=== PATIENT | female | born 1990 | race Caucasian/White ===

== ENCOUNTER 2017-02-02 09:58 | Emergency (ER) | payer MEDICAID ==
[~2017-02-02] VITALS: Ht 160 cm; Wt 80.7 kg
[~2017-02-02 09:58] MED LIST: AMOXIL500 MG PO; BACTRIM DS 8001 TAB PO; CIPRO 500MG TA500 MG PO; CLINDAMYCIN150 MG PO; CORTISPORIN (GE10 M2 OT; LORTAB 5/500 501 TAB PO; NOMEDS *; PERCOCET 5/3251 EACH PO; ZOFRAN ODT8 MG PO
[2017-02-02] MEDS ORDERED: FLONASE 50 MCG16 GM (10:26)
[2017-02-02] MEDS ORDERED: CLARITIN 10MG T10 MG PO (10:26)
--- NOTE | 2017-02-02 10:27 | Urgent Treatment Center Report ---
History of Present Issue Date/Time Seen by Provider 02/02/17 1015 Visit Reason Pt arrived:Walked Presenting Problem:PT STATES CHEST CONGESTION, SINUS PRESSURE AND THROAT IRRITATION THAT BEGAN LAST NIGHT Location if Accident: Onset of symptoms date/time:02/01/17/ or onset unknown for:MEDICAL HX UNKNOWN Have you (or family members/close friends) recently traveled outside the [place]? N If Yes, where/when: Have you had exposure to infectious disease within the past month? TB? Other? Specify: c/o nasal congestion, rhinorrhea, head congestion. Started w/ rhinorrhea yesterday evening. Woke up in the middle of the night unable to breath due to nasal congestion. Head feels "like a balloon" this morning. Benadryl once last night helped w/ rhinorrhea. Hasn't taken or tried anything else. No known sick contacts. Source patient Exam Limitations no limitations ALLERGIES Coded Allergies: codeine (02/02/17) Home Medications Reported Medications No Home Medications (NO HOME MEDICATIONS) 1 X * ONCE History Medical History General CAD? No Angina: No OR: No Hypertension? No Hyperlipidemia? No CHF? No DVT? No PE? No COPD? No Asthma? No Anemia? No GERD? No Gastric ulcers? No GI Bleed? No Hernia? No Thyroid Problems? No Hypothyroidism? No CVA? No Seizures? No Diabetes? No Renal Insuffiency? No UTI? No Stones? No BPH? No GB Disease: No Nephritic Syndrome? No Asplenia? No Hepatitis? No Sickle Cell Disease? No Arthritis? No Migraines? No Cataracts? No Glaucoma? No MRSA? No HIV? No TB? No Anxiety? No Depression? No Cancer? 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 denies: ear pain, throat pain, throat swelling. Respiratory denies cough, denies shortness of breath Gastrointestinal denies no symptoms reported Musculoskeletal denies other (aches) Skin denies rash Psychiatric/Neurological denies headache Physical Exam Vital Signs Vital Signs Date Time Temp Pulse Resp B/P Pulse O2 O2 Flow FiO2 Ox Delivery Rate 02/02 1008 98.9 101 20 142/78 98 General Appearance normal appearance, no apparent distress Eye Exam - bilateral eye normal exam Ear, Nose, Throat normal ENT inspection (x/ moderate nasal obi) Neck non-tender, supple Respiratory Status No: respiratory distress, productive cough, non productive cough. Lung Sounds anterior: lungs clear. posterior: lungs clear. bilateral: lungs clear. Cardiovascular regular rate/rhythm, no peripheral edema, no murmur Neurologic alert, oriented x 3 Mental status normal mood/affect Skin normal color, warm/dry Lymphatic no adenopathy Medical Decision Making LABS/Meds/Orders Pt receiving controlled substance in ED? No Departure Departure Time of Disposition 1023 Disposition DC Home or Self Care(routine) Clinical Impression Primary Impression: Upper respiratory virus Condition STABLE Referrals NO REFERRAL Follow up with primary care IMMEDIATELY for new or worsening symptoms OR no noticeable improvement over the next 3 days. 911 for difficulty breathing or swallowing. Patient Instructions DI for Viral Upper Respiratory Infection -- Adult Additional Instructions * No sign of bacterial infection. Likely viral. Virus can take 7-14 days to run their course * Monitor Temp. Follow up if any fever begins. * Encourage fluids, water, gatorade, powerade, pedialyte if infant/toddler/child * warm salt water gargles * warm fluids * sore throat lozenges * sleep elevated * humidifier/vaporizer * flonase 2 sprays each nostril daily but may take 2-3 days to notice improvement with it. * Claritin daily. * Sudafed as needed. Follow up IMMEDIATELY for new or worsening symptoms OR no noticeable improvement over the next 48-72 hours. 911 for difficulty breathing or swallowing. Discharge Counseling Counseled pt/family regarding diagnosis, medications/RX, home care, follow up needs Prescriptions Current Visit Scripts Fluticasone Propionate (Flonase 50 Mcg Nasal [place]) 2 SPRAY NA DAILY #1 BOT Loratadine (Claritin 10MG) 10 MG PO DAILY #30 TAB at 1030
[2017-02-02 10:28] VITALS: BP 142/78
== END 2017-02-02 10:29 | disposition home or self-care (01) ==
LOC: UTC 09:58
DX: H60.91 Unspecified otitis externa, right ear (principal)

== ENCOUNTER 2017-02-19 10:25 | Emergency (ER) | payer MEDICAID ==
[~2017-02-19] VITALS: Ht 160 cm; Wt 77.1 kg
[~2017-02-19 10:25] MED LIST changes: +CLARITIN 10MG T10 MG PO; +FLONASE 50 MCG16 GM
[2017-02-19] MEDS ORDERED: FLOXIN 0.3%5 ML/BOT OT (10:53)
--- NOTE | 2017-02-19 10:54 | Urgent Treatment Center Report ---
History of Present Issue Date/Time Seen by Provider 02/19/17 1044 Visit Reason Pt arrived:Walked Presenting Problem:PT STATES R EAR ACHE THAT BEGAN LAST NIGHT. STATES NOW SHE HAS SWELLING BEHIND EAR AND PAIN RADIATES INTO NECK AND JAW. DENIES INJURY Location if Accident: Onset of symptoms date/time:02/18/17/ or onset unknown for:MEDICAL HX UNKNOWN Have you (or family members/close friends) recently traveled outside the [place]? N If Yes, where/when: Have you had exposure to infectious disease within the past month? TB? Other? Specify: Patient state that she has been having pain in her right ear on and off for several days. States that last night she began having severe earache in right ear and feels like the outside of the ear is swelling and she is having pain in the ear when she opens her mouth or chews states that she has had some light drainage from the ear but it is very tender to touch ALLERGIES Coded Allergies: codeine (02/02/17) Home Medications Reported Medications No Home Medications (NO HOME MEDICATIONS) 1 X * ONCE History Medical History General CAD? No Angina: No NH: No Hypertension? No Hyperlipidemia? No CHF? No DVT? No PE? No COPD? No Asthma? No Anemia? No GERD? No Gastric ulcers? No GI Bleed? No Hernia? No Thyroid Problems? No Hypothyroidism? No CVA? No Seizures? No Diabetes? No Renal Insuffiency? No UTI? No Stones? No BPH? No GB Disease: No Nephritic Syndrome? No Asplenia? No Hepatitis? No Sickle Cell Disease? No Arthritis? No Migraines? No Cataracts? No Glaucoma? No MRSA? No HIV? No TB? No Anxiety? No Depression? No Cancer? 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 Physical Exam Vital Signs Vital Signs Date Time Temp Pulse Resp B/P Pulse O2 O2 Flow FiO2 Ox Delivery Rate 02/19 1033 97.9 106 20 156/101 98 General Appearance normal appearance, WD/WN, no apparent distress Ear, Nose, Throat right ear external cannal swollen puss noted Tm not visable Respiratory Status Yes: trachea midline, chest symmetrical, non tender chest. No: respiratory distress. Cardiovascular normal exam, regular rate/rhythm, no peripheral edema, no gallop Neurologic alert, crimp setter II-XII nml as tested, normal exam, no motor/sensory deficits, oriented x 3 Medical Decision Making LABS/Meds/Orders Pt receiving controlled substance in ED? No Results/Orders Current Medication Orders Sig/Mary Start time Last Medication Dose Route Stop Time Status Admin Ceftriaxone Sodium 1 GM ONCE ONE 02/19 1100 DC 02/19 IM 02/19 1101 1055 Lidocaine HCl 0 ONCE ONE 02/19 1100 DC 02/19 IM 02/19 1101 1056 Ceftriaxone Sodium 0 .STK-MED ONE 02/19 1051 DC .ROUTE Lidocaine HCl 0 .STK-MED ONE 02/19 1051 DC .ROUTE Departure Departure Time of Disposition 1052 Disposition DC Home or Self Care(routine) Clinical Impression Primary Impression: Otitis externa Qualifiers: Otitis externa type: unspecified type Chronicity: unspecified Laterality: right Qualified Code: H60.91 - Unspecified otitis externa, right ear Condition STABLE Referrals Nedra Rodriguez MD (Family) Patient Instructions DI for Otitis Externa, Otitis Externa Additional Instructions Use drops as directed OVer the coutner Motrin or Tylenol as needed for pain or fever Follow up with family doctor Return if needed Discharge Counseling Counseled pt/family regarding diagnosis, medications/RX, home care Prescriptions Current Visit Scripts OFLOXACIN (Floxin 0.3% Otic Solution 5ML) 10 DROP OT BID #1 BOT at 1113
[2017-02-19 11:18] VITALS: BP 156/101
[2017-03-08] MEDS ORDERED: NIX CREAM R60 ML/BOT EX (11:34)
[2017-03-08] MEDS ORDERED: CLARITIN 10MG T10 MG PO (11:34)
== END 2017-02-19 11:21 | disposition home or self-care (01) ==
LOC: UTC 10:25
DX: H60.91 Unspecified otitis externa, right ear (principal)

== ENCOUNTER 2017-03-08 10:50 | Emergency (ER) | payer MEDICAID ==
[~2017-03-08] VITALS: Ht 160 cm; Wt 81.6 kg
--- NOTE | 2017-03-08 11:35 | Urgent Treatment Center Report ---
History of Present Issue Date/Time Seen by Provider 03/08/17 1116 Visit Reason Pt arrived:Walked Presenting Problem:PT C/O RIGHT EAR PAIN. Location if Accident: Onset of symptoms date/time:/ or onset unknown for:MEDICAL HX UNKNOWN Have you (or family members/close friends) recently traveled outside the [place]? N If Yes, where/when: Have you had exposure to infectious disease within the past month? TB? Other? Specify: Patient states that she was recently seen and treated for inflammed lymph nodes behind her right ear. States that now she is having pressure like feeling behind her ears and wanted to have it checked out. 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 No Angina: No OR: No Hypertension? No Hyperlipidemia? No CHF? No DVT? No PE? No COPD? No Asthma? No Anemia? No GERD? No Gastric ulcers? No GI Bleed? No Hernia? No Thyroid Problems? No Hypothyroidism? No CVA? No Seizures? No Diabetes? No Renal Insuffiency? No UTI? No Stones? No BPH? No GB Disease: No Nephritic Syndrome? No Asplenia? No Hepatitis? No Sickle Cell Disease? No Arthritis? No Migraines? No Cataracts? No Glaucoma? No MRSA? No HIV? No TB? No Anxiety? No Depression? No Cancer? No Immunization HX DT/Tetanus 5-10 YRS Surgical Hx Previous Surgery?Y EAR TUBES TONSILS AND ADENOIDS Social History Smoking Hx Smoker: Current Every Day Smoker Tobacco: Yes Type Cigarettes Alcohol Alcohol: No Review of Systems All Other Systems Reviewed and Negative ENT ear pain, nose congestion. Comment State has seasonal allergies not sure if ear pain is from infection or where her sinuses are stopped up Physical Exam Vital Signs Vital Signs Date Time Temp Pulse Resp B/P Pulse O2 O2 Flow FiO2 Ox Delivery Rate 03/08 1054 98.5 87 16 155/60 98 General Appearance normal appearance, WD/WN, no apparent distress Ear, Nose, Throat Bilateral ears no redness, mild fluid noted scaring noted from old ear tubes Respiratory Status Yes: trachea midline, chest symmetrical, non tender chest. No: respiratory distress. Cardiovascular normal exam, regular rate/rhythm Neurologic alert, normal exam, oriented x 3 Comments Hair checked observed what appeared to be nits on hair shaft, no adult lice seen Medical Decision Making LABS/Meds/Orders Pt receiving controlled substance in ED? No Departure Departure Time of Disposition 1130 Disposition DC Home or Self Care(routine) Clinical Impression Primary Impression: Allergic rhinitis Qualifiers: Chronicity: unspecified Allergic rhinitis trigger: unspecified Allergic rhinitis seasonality: unspecified seasonality Qualified Code: J30.9 - Allergic rhinitis, unspecified Condition STABLE Referrals Av BOYD,TERRA Quintanilla Patient Instructions DI for Allergic Rhinitis, DI for Head Lice, Head Lice Additional Instructions Use lice shampoo as directed and clean all bed linens with hot water. replace brushes and clean all clothing bed linens etc Follow up with family doctor REturn if needed Discharge Counseling Counseled pt/family regarding diagnosis, medications/RX, home care, follow up needs Prescriptions Current Visit Scripts Permethrin (NIX) 60 ML EX ONCE #1 LIQ Loratadine (Claritin 10MG) 10 MG PO DAILY #30 TAB at 1137
[2017-03-08 11:42] VITALS: BP 155/60
--- OUTSIDE RECORDS SUMMARY | 2017-03-18 02:59 | External Medical Summary Rpt | CCD ---
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 Name Role Phone LETI ENGLISHRIMARICKY Unavailable Unavailable [facility] Unavailable Unavailable HOSP[facility], [facility] PH[facility] Unavailable Unavailable PRACTICE L, [facility], Unavailable Unavailable [facility] MARY HECTOR, MARY Unavailable Unavailable [facility] Unavailable [facility]available [facility], [facility] Unavailable Unavailable [facility], [facility] Unavailable Unavailable [facility], [facility] NATHANEIL BREANA, NATHANIEL Unavailable Unavailable BREANA TORI CARRASCO, Unavailable Unavailable TORI CARRASCO R HENRY, Unavailable Unavailable Harjit [facility], Unavailable Unavailable [facility], [facility], [facility] Unavailable Unavailable EMER[facility]Y [facility], [facility] Unavailable Unavailable DEPT [facility], [facility] DE[facility] Unavailable Unavailable [facility] Purpose Continuity of Care Document - 07-02-2007 through 2016 Problems Code Diagnosis DOS Provider Status H6501 ACUTE 02-03-2016 [place] [facility] OTITIS HOSPITAL MEDIA RIGHT EAR [id number] OTHER ACUTE 02-03-2016 [facility] NONSUPPURAT [facility] [place] OTITIS MEDIA LT EAR L040 ACUTE 02-03-2016 [facility] LYMPHADENIT N EMERGENCY IS OF FACE PHYSI HEAD AND NECK Z886 ALLERGY 02-03-2016 [place] STATUS TO [facility] HOSPITAL AGENT STATUS [id number] OTHER LONG 01-28-2016 LAB DANIEL [address] ENRRIQUE CURRENT HOLDINGS DRUG THERAPY Z3009 ENCOUNTER 10-24-2015 [facility] OT GENERAL [facility] 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 [facility] ICE CONTRACEPT Z3202 ENCOUNTER 10-24-2015 [facility] DEPT TEST RESULT [facility] NEGATIVE H6982 OTHER SPEC 10-17-2015 [facility]IAN PRACTICE L TUBE LT EAR H6693 OTITIS 10-03-2015 [facility] UNSPECIFIED PRACTICE L BILATERAL J0190 ACUTE 10-03-2015 [facility] SINUSITIS PHYSICIAN UNSPECIFIED PRACTICE L 5259 UNSPECIFIED 12-28-2014 [facility] RTING STRUCTURES 62618 JAW PAIN 12-28-2014 [facility] 4619 ACUTE 07-18-2007 [facility] UNSPECIFIED 460 ACUTE 07-02-2007 [facility] ITIS Allergies, Adverse Reactions, Alerts Type Drug Allergy Adverse Reaction to Substance Substance Reaction Severity Codeine NA-NAUSEA/VOMITING Mild Medications Na ND Rx Da Fi Fi Am Da Di Ph RX Ph St me C No te ll ll ou ys ag ar # ys at rm s nt no ma ic us Or Da si cy ia de te s n re d MA 00 09 0 No PA 90 -1 P 41 8- Lo 32 98 20 ng 5 26 13 er MG 1 Ac TA ti BL ve ET ME 59 01 03 00 21 6 CL 16 No Ac TH 74 -2 -2 .0 IN 34 t ti YL 60 6- 6- 00 IC 40 Av ve VA 00 20 20 ai ED 10 08 08 PH la NI 3 AR bl SO MA e LO CY NE 4 MG DO SE PK 63 02 03 00 20 10 CL 16 No Ac 30 -1 -2 .0 IN 45 t ti 40 1- 6- 00 IC 77 Av ve 76 20 20 ai 32 08 08 PH la 0 AR bl MA e CY 60 01 03 00 18 5 CL 16 No Ac 25 -2 -2 0. IN 34 t ti 80 6- 6- 00 IC 41 Av ve 23 20 20 0 ai 91 08 08 PH la 6 AR bl MA e CY Vital Signs 02-22-2013 17:21 Name Value Interpretat Reference Comment ion Range BP 90 mm[Hg] Diastolic BP Systolic 150 mm[Hg] Heart 96 /min Rate/Pulse O2% 98 % Respiratory 16 /min Rate 02-22-2013 15:47 Name Value Interpretat Reference Comment ion Range BP 93 mm[Hg] Diastolic BP Systolic 161 mm[Hg] Heart 78 /min Rate/Pulse O2% 99 % Respiratory 18 /min Rate Results Labs Lab Lab Date Result Refere Interp Status Commen Order Detail nces retati t Range on B-HCG Ur Ql (02-22-2013 15:45) B-HCG 02-22-2 NEGATIV NEG complet Ur Ql 013 E ed 15:45 CHLAMYDIA AND GONORRHEA TESTING (05-24-2012 10:45) Chlamyd -18-2 NEGATIV complet ia 012 E ed trachom 10:45 atis rRNA [Presen ce] in Unspeci fied specime n by Probe & target amplifi cation method Neisser 05-24- NEGATIV complet ia 012 E ed gonorrh 10:45 oeae rRNA [Presen ce] in Unspeci fied specime n by Probe & target amplifi cation method CHLAMYDIA AND GONORRHEA TESTING (05-24-2012 10:45) COLLECT --2 NA complet OR 012 ed 10:45 ETHNICI --2 WHITE, complet TY 012 NON-HIS ed 10:45 PANIC KIT 05-24-2 413 complet EXPIRAT 012 ed ION 10:45 DATE SYMPTOM 05-24- NO complet S 012 ed 10:45 REASON 05-24- REVISIT complet FOR 012 /ANNUAL ed REQUEST 10:45 FAMILY PLANNIN G VISIT SPECIME 05-24- URINE complet N 012 ed SOURCE 10:45 PREGNAN --2 NO complet T 012 ed 10:45 CHART 05-24- NA complet NUMBER 012 ed 10:45 Chlamyd --2 Pending complet ia 012 ed trachom 10:45 atis rRNA [Presen ce] in Unspeci fied specime n by Probe & target amplifi cation method Neisser 05-24- Pending complet ia 012 ed gonorrh 10:45 oeae rRNA [Presen ce] in Unspeci fied specime n by Probe & target amplifi cation method Procedures Procedure DOS Code Location Performer Comment DRUG TEST G0479 LAB DANIEL LAB DANIEL 6 ENRRIQUE ENRRIQUE PRESUMP;I HOLDINGS HOLDINGS NSTRUMENT ED CHEMISTRY ANLYZER DRUG TEST G0480 LAB DANIEL LAB DANIEL DEFINITV [address] ID HOLDINGS HOLDINGS METH P DAY 1-7 DRUG CL URINE 68000 [facility] DE[facility] HLTH DEPT VISUAL SHIL[facility] COLOR CMPRSN METHS UNCLASSIF J3490 [facility] Encounters Encounter Start End Date Code Location Performer Type Date [facility] 6 [facility] T EMERGENCY 08507 [facility] 6 6 [facility] EMERGENC[facility] T VISIT PHYSI MODERATE SEVERITY EMERGENCY 28572 [facility] 6 [facility] T VISIT LOW/MODER SEVERITY OFFICE 93349 TEREZA STARKS [facility] 6 6 DISTRICT DISTRICT T VISIT HLTH DEPT HLTH DEPT 10 [facility] MINUTES OFFICE 23255 RACHEL HERNANDEZ [facility] 6 6 PHYSICIAN HECTOR T VISIT PRACTICE 15 L MINUTES OFFICE 16654 DARYGUY HERNANDEZ [facility] 6 6 PHYSICIAN HECTOR T VISIT PRACTICE 15 L MINUTES EMERGENCY 87969 [facility] [address] [facility] T VISIT LOW/MODER SEVERITY HOSPITAL [facility] - 5 5 MEM H[facility] T EMERGENCY 12474 NESHA ARMSTRONG 5 5 PHYSICIAN FLORA ALEGRIA T VISIT MODERATE SEVERITY Emergency PREMA RICHARDS (ER) 3 15:31 3 17:23 [facility] OFFICE 98416 FAMILY TACOS CARRASCO 8 8 CARE TORI T T VISIT ASSOCIATE 15 S MINUTES OFFICE 95958 FAMILY TACOS [facility] 8 8 CARE Harjit BARBOZA T VISIT ASSOCIATE 15 S MINUTES
--- OUTSIDE RECORDS SUMMARY | 2017-03-18 02:59 | External Medical Summary Rpt | CCD ---
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 Role Phone LETI ENGLISHRIMARICKY Unavailable Unavailable [facility] Unavailable Unavailable [facility], [facility] Unavailable Unavailable PRACTICE L, [place] [facility], Unavailable Unavailable [facility] MARY HECTOR, MARY Unavailable Unavailable [facility] Unavailable [facility] INC, [facility] DANIEL ENRRIQUE Unavailable Unavailable HOLDINGS, [facility] ENRRIQUE Unavailable Unavailable HOLDINGS, [facility] HOLDINGS NATHANIEL BREANA, NATHANIEL Unavailable Unavailable BREANA TORI CARRASCO, Unavailable Unavailable TORI CARRSACO R HENRY, Unavailable Unavailable Harjit [facility], Unavailable Unavailable [facility], [facility], [facility] Unavailable Unavailable EMERGENCY PHYSI, [facility] EMERGENCY PHYSI [facility] Unavailable [facility]available DEPT [facility], [facility] DEPT [facility] Unavailable [facility]available [facility] Purpose Continuity of Care Document - 07-02-2007 through 2016 Problems Code Diagnosis DOS Provider Status H6501 ACUTE 02-03-2016 [place] SEROUS [facility] OTITIS HOSPITAL MEDIA RIGHT EAR H92993 OTHER ACUTE 02-03-2016 [facility] NONSUPPURAT PH[facility]SI [place] OTITIS MEDIA LT EAR L040 ACUTE 02-03-2016 [facility] LYMPHADENIT N EMERGENCY IS OF FACE PHYSI HEAD AND NECK Z886 ALLERGY 02-03-2016 [place] STATUS TO [facility] HOSPITAL AGENT STATUS N90747 OTHER LONG 01-28-2016 LAB DANIEL TERM ENRRIQUE CURRENT HOLDINGS DRUG THERAPY Z3009 ENCOUNTER 10-24-2015 [facility] OT [facility] SURGERY SPECIALIST&ADV [place] ICE CONTRACEPT Z3202 ENCOUNTER 10-24-2015 [facility] DEPT TEST RESULT [facility] NEGATIVE H6982 OTHER SPEC 10-17-2015 [facility] EUSTACHIAN PRACTICE L TUBE LT EAR H6693 OTITIS 10-03-2015 [facility] UNSPECIFIED PRACTICE L BILATERAL J0190 ACUTE 10-03-2015 [facility] SINUSITIS PHYSICIAN UNSPECIFIED PRACTICE L 5259 UNSPECIFIED 12-28-2014 [facility] RTING STRUCTURES 03235 JAW PAIN 12-28-2014 [facility] 4619 ACUTE 07-18-2007 [facility] [...] 6- 6- 00 IC 40 Av ve IN 00 20 20 ai ED 10 08 [...] METH P DAY 1-7 DRUG CL [facility]INE 57872 [facility] DEPT HLTH DEPT VISUAL [facility] COLOR CMPRSN METHS UNCLASSIF J3490 [facility] DRUGS 5 [facility] Encounters Encounter Start End Date Code Location Performer Type Date [facility] T EMERGENCY 80889 [facility] 6 6 [facility] EMERGENCY T VISIT PHYSI MODERATE SEVERITY EMERGENCY 09060 [facility] 6 [facility] T VISIT LOW/MODER SEVERITY OFFICE 02318 [facility] T VISIT HLTH DEPT HLTH DEPT 10 [facility] MINUTES OFFICE 80141 [facility] 6 6 PHYSICIAN HECTOR T VISIT PRACTICE 15 L MINUTES OFFICE 25402 DARYGUY HERNANDEZ [facility] 6 6 PHYSICIAN HECTOR T VISIT PRACTICE 15 L MINUTES EMERGENCY 16462 [facility] 5 5 [facility] INC T VISIT LOW/MODER SEVERITY HOSPITAL [facility] - 5 5 [facility] EMERGENC[facility] 73402 NESHA ARMSTRONG 5 5 PHYSICIAN FLORA ALEGRIA T VISIT MODERATE SEVERITY Emergency PREMA RICHARDS (ER) 3 15:31 3 17:23 [facility] OFFICE 69637 FAMILY TACOS CARRASCO 8 8 CARE TORI T T VISIT ASSOCIATE 15 S MINUTES OFFICE 23922 FAMILY TACOS RESTREPO 8 8 CARE Harjit BARBOZA T VISIT ASSOCIATE 15 S MINUTES
--- OUTSIDE RECORDS SUMMARY | 2017-03-18 03:00 | External Medical Summary Rpt | CCD ---
Author Author , JOSÉ Organization JOSÉ Address Unknown Phone [email or web address] Immunization Name Date Rout CVX Reac Dose Comm Prov Is Faci e tion ent ider Refu lity Give sed n Td 11-0 9 999 Hist H149 No H149 (della 8-20 oric lt), 05 al Info adso rmat rbed ion - Sour ce Unsp ecif ied
--- OUTSIDE RECORDS SUMMARY | 2017-03-18 03:00 | External Medical Summary Rpt | CCD ---
Author Author , JOSÉ KUMAR Address Unknown Phone [email or web address] Care Team Providers Care Forest Economist Name Role Phone LETI BENJAMIN Unavailable Unavailable [facility] Unavailable Unavailable HOSPITAL, [facility] PHYSICIAN Unavailable Unavailable PRACTICE L, [facility], Unavailable Unavailable [...] Unavailable Unavailable [facility], Unavailable Unavailable [facility], [facility], [facility] Unavailable Unavailable EMERGENCY PH[facility], [facility] EM[facility]GENC[facility] Unavailable Unavailable DEPT [facility], [facility] DEPT [facility] Unavailable Unavailable DEPT [facility], [facility] Purpose Continuity of Care Document - 07-02-2007 through 2016 Problems Code Diagnosis DOS Provider Status H6501 ACUTE 02-03-2016 [place] [facility]IS HOSPITAL MEDIA RIGHT EAR [id number] OTHER ACUTE 02-03-2016 [facility] NONSUPPURAT PHYSI [place] OTITIS MEDIA LT EAR L040 ACUTE 02-03-2016 [facility] LYMPHADENIT N EMERGENCY IS OF FACE PHYSI HEAD AND NECK Z886 ALLERGY 02-03-2016 [place] STATUS TO [facility] AGENT STATUS [id number] OTHER LONG 01-28-2016 LAB DANIEL TERM ENRRIQUE CURRENT [facility]INGS DRUG THERAPY Z3009 ENCOUNTER 10-24-2015 [facility] OT [facility] DEPT 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 [place] ICE CONTRACEPT Z3202 ENCOUNTER 10-24-2015 [facility] FOR [facility] HL DEPT TEST RESULT [place] NEGATIVE H6982 OTHER SPEC 10-17-2015 [place] DISORDERS PHYSICIAN EUSTACHIAN PRACTICE L TUBE LT EAR H6693 OTITIS 10-03-2015 [place] MEDIA PHYSICIAN UNSPECIFIED PRACTICE L BILATERAL J0190 ACUTE 10-03-2015 [place] SINUSITIS PHYSICIAN UNSPECIFIED PRACTICE L 5259 UNSPECIFIED 12-28-2014 [facility] RTING STRUCTURES 40072 JAW PAIN 12-28-2014 [facility] 4619 ACUTE 07-18-2007 [facility] SINUSITIS, ASSOCIATES UNSPECIFIED 460 ACUTE 07-02-2007 [facility] NASOPHARYNG ASSOCIATES ITIS Medications Na ND Rx Da Fi Fi Am Da Di Ph RX Ph St me C No te ll ll ou ys ag ar # ys at rm s nt no ma ic us Or Da si cy ia de te s n re d 63 02 03 00 20 10 CL 16 No Ac 30 -1 -2 .0 IN 45 t ti 40 1- 6- 00 IC 77 Av ve 76 20 20 ai 32 08 08 PH la 0 AR bl MA e CY ME 59 01 03 00 21 6 CL 16 No Ac TH 74 -2 -2 .0 IN 34 t ti YL 60 6- 6- 00 IC 40 Av ve PA 00 20 20 ai ED 10 08 08 PH la NI 3 AR bl SO MA e LO CY NE 4 MG DO SE PK 60 01 03 00 18 5 CL 16 No Ac 25 -2 -2 0. IN 34 t ti 80 6- 6- 00 IC 41 Av ve 23 20 20 0 ai 91 08 08 PH la 6 AR bl MA e CY Procedures Procedure DOS Code Location Performer Comment DRUG TEST G0479 LAB DANIEL LAB DANIEL 6 ENRRIQUE ENRRIQUE PRESUMP;I HOLDINGS HOLDINGS NSTRUMENT ED CHEMISTRY ANLYZER DRUG TEST G0480 LAB DANIEL LAB DANIEL DEFINITV [address] ID HOLD[facility] HOLDINGS METH P DAY 1-7 DRUG CL [facility]INE [facility] DEPT VISUAL [facility] COLOR CMPRSN METHS UNCLASSIF J3490 [facility] [place] [facility] IED DRUGS 5 [facility] INC Encounters Encounter Start End Date Code Location Performer Type Date EMERGENCY [address] T VISIT LOW/MODER SEVERITY HOSPITAL [address] [facility] [address] [place] [id number] 6 LISA [facility] EMERGENCY T VISIT PHYSI MODERATE SEVERITY OFFICE 07965 TEREZA STARKS OUTPATIEN 6 6 [facility] T VISIT TH DEPT [facility] DEPT 10 SHILOH [facility] MINUTES OFFICE 67348 RACHEL HERNANDEZ OUTPATIEN 6 6 PHYSICIAN HECTOR T VISIT PRACTICE 15 L MINUTES OFFICE 02293 DARYGUY HERNANDEZ OUTPATIEN 6 6 PHYSICIAN HECTOR T VISIT PRACTICE 15 L MINUTES [facility] SUDHAKAR - 5 5 MEM HOSP OUTPATIEN INC T EMERGENCY 38146 N[facility] ARMSTRONG 5 5 PHYSICIAN BREANA CALDWELL S PLLC T VISIT MODERATE SEVERITY EMERGENCY 36022 [facility] 5 5 MEM HOSP DEPARTMEN INC T VISIT LOW/MODER SEVERITY OFFICE 07125 FAMILY TACOS CARRASCO 8 8 CARE TORI T T VISIT ASSOCIATE 15 S MINUTES OFFICE 62692 FAMILY TACOS [facility] 8 8 CARE R JABARI T VISIT ASSOCIATE 15 S MINUTES
--- OUTSIDE RECORDS SUMMARY | 2017-03-18 03:00 | External Medical Summary Rpt ---
Author Author JOSÉ Production, JOSÉ Production Organization JOSÉ [employer] Address Unknown Phone Unavailable Results CHLAMYDIA AND GONORRHEA TESTING Observa Value Referen Units Interpr Notes Date tion ce etation Range COLLECT NA No No No No May 24 OR informa informa informa informa 2012 tion in tion in tion in tion in 10:45 source source source source AM data data data data ETHNICI WHITE, No No No No May 24 TY NON-HIS informa informa informa informa 2012 PANIC tion in tion in tion in tion in 10:45 source source source source AM data data data data KIT 4-30-13 No No No No May 24 EXPIRAT informa informa informa informa 2012 ION tion in tion in tion in tion in 10:45 DATE source source source source AM data data data data SYMPTOM NO No No No No May 24 S informa informa informa informa 2012 tion in tion in tion in tion in 10:45 source source source source AM data data data data REASON REVISIT No No No No May 24 FOR /ANNUAL informa informa informa informa 2012 REQUEST FAMILY tion in tion in tion in tion in 10:45 source source source source AM PLANNIN data data data data G VISIT SPECIME URINE No No No No May 24 N informa informa informa informa 2012 SOURCE tion in tion in tion in tion in 10:45 source source source source AM data data data data PREGNAN NO No No No No May 24 T informa informa informa informa 2012 tion in tion in tion in tion in 10:45 source source source source AM data data data data CHART NA No No No No May 24 NUMBER informa informa informa informa 2012 tion in tion in tion in tion in 10:45 source source source source AM data data data data Chlamyd NEGATIV No No No NEGATIV May 24 ia E informa informa informa E 2012 trachom tion in tion in tion in RESULT= 10:45 atis source source source WITHIN AM rRNA data data data NORMAL [Presen ce] in LIMITSP Unspeci OSITIVE fied specime RESULT= n by Probe & ABNORMA target LEQUIVO CECILIA amplifi RESULT= cation method INDETER MINATEU NSATISF ACTORY RESULT= INVALID Neisser NEGATIV No No No NEGATIV May 24 ia E informa informa informa E 2012 gonorrh tion in tion in tion in RESULT= 10:45 oeae source source source WITHIN AM rRNA data data data NORMAL [Presen ce] in LIMITSP Unspeci OSITIVE fied specime RESULT= n by Probe & ABNORMA target LEQUIVO CECILIA amplifi RESULT= cation method INDETER MINATEU NSATISF ACTORY RESULT= INVALID THE APTIMA COMBO 2 ASSAY IS NOT INTENDE D FOR THE EVALUAT ION OF SUSPECT EDSEXUA L ABUSE OR FOR OTHER MEDICO- LEGAL INDICAT IONS. FOR THOSE PATIENT S FORWHOM A FALSE POSITIV E RESULT MAY HAVE ADVERSE PSYCHO- SOCIAL IMPACT, [facility] MMENDS RETESTI NG.\.br \This report contain s patient informa tion that must be protect ed in accorda nce with the Health Insuran ce Portabi lity and Account ability Act. CHLAMYDIA AND GONORRHEA TESTING Observa Value Referen Units Interpr Notes Date tion ce etation Range COLLECT NA No No No No May 24 OR informa informa informa informa 2012 tion in tion in tion in tion in 10:45 source source source source AM data data data data ETHNICI WHITE, No No No No May 24 TY NON-HIS informa informa informa informa 2012 PANIC tion in tion in tion in tion in 10:45 source source source source AM data data data data KIT 4-30-13 No No No No May 24 EXPIRAT informa informa informa informa 2012 ION tion in tion in tion in tion in 10:45 DATE source source source source AM data data data data SYMPTOM NO No No No No May 24 S informa informa informa informa 2012 tion in tion in tion in tion in 10:45 source source source source AM data data data data REASON REVISIT No No No No May 24 FOR /ANNUAL informa informa informa informa 2012 REQUEST FAMILY tion in tion in tion in tion in 10:45 source source source source AM PLANNIN data data data data G VISIT SPECIME URINE No No No No May 24 N informa informa informa informa 2012 SOURCE tion in tion in tion in tion in 10:45 source source source source AM data data data data PREGNAN NO No No No No May 24 T informa informa informa informa 2012 tion in tion in tion in tion in 10:45 source source source source AM data data data data CHART NA No No No No May 24 NUMBER informa informa informa informa 2012 tion in tion in tion in tion in 10:45 source source source source AM data data data data Chlamyd Pending No No No No May 24 ia informa informa informa informa 2012 trachom tion in tion in tion in tion in 10:45 atis source source source source AM rRNA data data data data [Presen ce] in Unspeci fied specime n by Probe & target amplifi cation method Neisser Pending No No No \.br\May 24 ia informa informa informa is 2012 gonorrh tion in tion in tion in report 10:45 oeae source source source contain AM rRNA data data data s [Presen patient ce] in Unspeci informa fied tion specime that n by must be Probe & target protect ed in amplifi accorda cation nce method with the Health Insuran ce Portabi lity and Account ability Act.
--- OUTSIDE RECORDS SUMMARY | 2017-03-18 03:00 | External Medical Summary Rpt | CCD ---
Author Author , JOSÉ KUMAR Address Unknown Phone [email or web address] Care Team Providers Care Tank Driver Name Role Phone LETI BENJAMIN Unavailable Unavailable [facility] Unavailable Unavailable HOSPITAL, [facility] Unavailable Unavailable PRACTICE L, [facility], Unavailable Unavailable [...] [facility], Unavailable Unavailable PLL, [facility], [facility] Unavailable Unavailable EMERGENCY PHYSI, [facility] EMERGENCY PH[facility]SI [facility] Unavailable Unavailable DEPT [facility], [facility] DEPT [facility] Unavailable Unavailable DEPT [facility] Purpose Continuity of Care Document - 07-02-2007 through 2016 Problems Code Diagnosis DOS Provider Status H6501 ACUTE 02-03-2016 [facility] OT[facility]IS HOSPITAL MEDIA RIGHT EAR F09316 OTHER ACUTE 02-03-2016 [facility] NONSUPPURAT PHYSI [place] OTITIS MEDIA LT EAR L040 ACUTE 02-03-2016 [facility] LYMPHADENIT N EMERGENCY IS OF FACE PHYSI HEAD AND NECK Z886 ALLERGY 02-03-[address] [place] [address] 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 Z3202 ENCOUNTER 10-24-2015 [facility] HL DEPT TEST RESULT [facility] NEGATIVE H6982 OTHER SPEC 10-17-2015 [place] DISORDERS PHYSICIAN EUSTACHIAN PRACTICE L TUBE LT EAR H6693 OTITIS 10-03-2015 [place] MEDIA PHYSICIAN UNSPECIFIED PRACTICE L BILATERAL J0190 ACUTE 10-03-2015 [place] SINUSITIS PHYSICIAN UNSPECIFIED PRACTICE L 5259 UNSPECIFIED 12-28-2014 [facility] TE[facility] RTING STRUCTURES 35080 JAW PAIN 12-28-2014 [facility] INC 4619 ACUTE 07-18-2007 [facility] SINUSITIS, ASSOCIATES UNSPECIFIED 460 ACUTE 07-02-2007 [facility] NASOPHARYNG ASSOCIATES ITIS Medications Na ND Rx [...] 6- 6- 00 IC 40 Av ve WY 00 20 20 ai ED 10 08 [...] METH P DAY 1-7 [place] [facility] DE[facility] HLTH DEPT VISUAL [facility] COLOR CMPRSN METHS UNCLASSIF J3490 [facility] IED DRUGS 5 [facility] MEM HOSP INC INC Encounters Encounter Start End Date Code Location Performer Type Date EMERGENCY [address] T VISIT LOW/MODER SEVERITY HOSPITAL [address] [facility] [address] [place] [address] 6 LISA [facility] EMERGENCY T VISIT PHYSI MODERATE SEVERITY OFFICE 12181 TEREZA STARKS OUTPATIEN 6 6 [facility] T VISIT TH DEPT [facility] DEPT 10 [place] MINUTES OFFICE 74864 RACHEL HERNANDEZ OUTPATIEN 6 6 PHYSICIAN HECTOR T VISIT PRACTICE 15 L MINUTES OFFICE 20530 DARYGUY HERNANDEZ OUTPATIEN 6 6 PHYSICIAN HECTOR T VISIT PRACTICE 15 L MINUTES [facility] SUD[facility] - 5 5 MEM HOSP OUTPATIEN INC T EMERGENCY 70208 NESHA ARMSTRONG 5 5 PHYSICIAN BREANA CALDWELL S PLLC T VISIT MODERATE SEVERITY EMERGENCY 74580 [facility] 5 5 MEM HOSP DEPARTMEN INC T VISIT LOW/MODER SEVERITY OFFICE 07966 FAMILY TACOS CARRASCO 8 8 CARE TORI T T VISIT ASSOCIATE 15 S MINUTES OFFICE 03776 FAMILY TACOS [facility] 8 8 CARE R JABARI T VISIT ASSOCIATE 15 S MINUTES
--- OUTSIDE RECORDS SUMMARY | 2017-03-18 03:00 | External Medical Summary Rpt ---
[...] MAY HAVE ADVERSE PSYCHO- SOCIAL IMPACT, [facility]I NG.\.br \This report contain s [...]
--- OUTSIDE RECORDS SUMMARY | 2017-03-18 03:00 | External Medical Summary Rpt | CCD ---
Author Author , JOSÉ Organization JOSÉ Address Unknown Phone [email or web address] Immunization Name Date Rout CVX Reac Dose Comm Prov Is Faci e tion ent ider Refu lity Give sed n Td 11-0 9 999 Hist H149 No H149 (della 8-20 oric lt), 05 al Info adso rmat rbed ion - Sour ce Unsp ecif ied
== END 2017-03-08 11:43 | disposition home or self-care (01) ==
LOC: UTC 10:50
DX: J30.9 Allergic rhinitis, unspecified (principal); Z88.6 Allergy status to analgesic agent; F17.210 Nicotine dependence, cigarettes, uncomplicated